=== PATIENT | female | born 1980 | race Caucasian/White ===

== ENCOUNTER 2017-07-10 07:13 | Emergency (ER) | payer MEDICARE, MEDICAID ==
[~2017-07-10] VITALS: Ht 147.3 cm; Wt 48.0 kg
[~2017-07-10 07:13] MED LIST: METH5TAB4 PO; ZOF4T PO
[2017-07-10 09:18] VITALS: BP 113/67
== END 2017-07-10 09:16 | disposition home or self-care (01) ==
LOC: ER 07:13
DX: J02.9 Acute pharyngitis, unspecified (principal); F12.10 Cannabis abuse, uncomplicated; Z59.0 Homelessness
CPT/HCPCS: 87081; 87880; 99284

== ENCOUNTER 2017-07-11 14:32 | Emergency (ER) | payer MEDICARE, MEDICAID ==
[~2017-07-11] VITALS: Ht 168934.2 cm; Wt 50.0 kg
[2017-07-11] MEDS ORDERED: acetaminophen 325mg tablet PO STA (14:33)
[2017-07-11] MEDS ORDERED: normal saline 1000ML IV soln IV ONE (14:35)
[2017-07-11 15:34] LABS: BASOPHILS % (AUTO) 0.4 % (0-1); EOSINOPHILS # (AUTO) 0.1 X10'3 (0-0.9); EOSINOPHILS % (AUTO) 1.1 % (0-6); HEMATOCRIT 38.8 % (35.0-45.0); HEMOGLOBIN 13.7 g/dl (12.0-16.0); LYMPHOCYTES # (AUTO) 1.3 X10'3 (1.1-4.8); LYMPHOCYTES % (AUTO) 25.2 % (21-51); MEAN CORPUSCULAR HEMOGLOBIN 31.7 PG (27.0-31.0); MEAN CORPUSCULAR HGB CONC 35.4 % (33.0-36.5); MEAN CORPUSCULAR VOLUME 89.6 FL (78-98); MEAN PLATELET VOLUME 7.7 FL (7.4-10.4); MONOCYTES # (AUTO) 0.5 X10'3 (0-0.9); NEUTROPHILS # (AUTO) 3.4 X10'3 (1.8-7.7); NEUTROPHILS % (AUTO) 64.3 % (42-75); PLATELET COUNT 273 X10'3 (140-440); RED BLOOD COUNT 4.32 X10'6 (4.20-5.60); RED CELL DISTRIBUTION WIDTH 12.2 % (11.5-14.5); WHITE BLOOD COUNT 5.3 X10'3 (4.5-11.0)
[2017-07-11 15:44] LABS: AMMONIA < 10 UMOL/L (11-32)
[2017-07-11 15:45] LABS: LACTIC SEPSIS 0.8 MMOL/L (0.4-2.0)
[2017-07-11 15:57] LABS: ALANINE AMINOTRANSFERASE 18 U/L (12-78); ALBUMIN 3.8 G/DL (3.4-5.0); ALBUMIN/GLOBULIN RATIO 1.1 (1.1-1.5); ALKALINE PHOSPHATASE 67 IU/L (46-116); ANION GAP 10 (8-16); ASPARTATE AMINO TRANSFERASE 14 U/L (10-37); BILIRUBIN,TOTAL 0.3 MG/DL (0.1-1.0); BLOOD UREA NITROGEN 8 MG/DL (7-18); CHLORIDE 105 MMOL/L (99-107); CREATINE KINASE 65 U/L (26-192); ETHANOL < 0.010 GM/DL (0.0-0.010); GLUCOSE 90 MG/DL (70-104); POTASSIUM 4.1 MMOL/L (3.5-5.1); SODIUM 141 MMOL/L (135-145); TOTAL CARBON DIOXIDE 26.2 MMOL/L (24-32); TOTAL PROTEIN 7.2 G/DL (6.4-8.2); eGFR 80 ML/MIN
[2017-07-11] MEDS ORDERED: haloperidol lactate 5mg/ml inj IM ONE (16:40)
[2017-07-11] MEDS ORDERED: proparacaine 0.5% ophthalmic drops 15ml EACHEYE ONE (16:55)
[2017-07-11] MEDS ORDERED: LORazepam 2 mg/ml vial IV ONE ×2 (17:10→17:30)
[2017-07-11 17:12] LABS: HCG SERUM QL NEGATIVE
[2017-07-11] MEDS: ciprofloxacin 0.3% 5ml ophthalmic solution EACHEYE SCH ×3 (17:52→23:43)
[2017-07-11 17:55] LABS: CLARITY,URINE CLEAR (Clear); COLOR,URINE YELLOW (Yellow); GLUCOSE, URINE NEGATIVE (Neg); KETONES,URINE TRACE mg/dl (Neg); LEUKOCYTE ESTERASE ,URINE NEGATIVE (Neg); NITRITES, URINE NEGATIVE (Neg); OCCULT BLOOD,URINE NEGATIVE (Neg); PH,URINE 5.5 (4.8-8.0); PROTEIN,URINE NEGATIVE (Neg); UROBILINOGEN,URINE 0.2 E.U/dL (0.2-1.0)
[2017-07-11 17:56] LABS: UA COLLECTION TYPE NON-SPECIFIED
[2017-07-11 18:53] LABS: URINE AMPHETAMINE SCREEN POSITIVE (Neg); URINE BARBITUATE SCREEN NEGATIVE (Neg); URINE BENZODIAZEPINES SCREEN NEGATIVE (Neg); URINE CANNABINOID SCREEN NEGATIVE (Neg); URINE COCAINE SCREEN NEGATIVE (Neg); URINE METHADONE SCREEN NEGATIVE (Neg); URINE OPIATE SCREEN NEGATIVE (Neg); URINE PHENCYCLIDINE SCREEN NEGATIVE (Neg)
[2017-07-11] MEDS ORDERED: ciprofloxacin 0.3% 5ml ophthalmic solution EACHEYE SCH (20:00)
[2017-07-12] MEDS: ciprofloxacin 0.3% 5ml ophthalmic solution EACHEYE SCH ×6 (04:00→23:57)
[2017-07-12] MEDS ORDERED: NO HOME MEDS (11:06)
[2017-07-12] MEDS ORDERED: ziprasidone IM 20mg inj **IM only IM PRN (23:05)
[2017-07-13] MEDS: ciprofloxacin 0.3% 5ml ophthalmic solution EACHEYE SCH ×2 (04:00→07:30)
[2017-07-13 13:38] VITALS: BP 98/68
== END 2017-07-13 13:42 ==
LOC: ER 14:32
DX: F23 Brief psychotic disorder (principal); F15.10 Other stimulant abuse, uncomplicated; H10.9 Unspecified conjunctivitis; F12.10 Cannabis abuse, uncomplicated; Z59.0 Homelessness; Z91.19 Patient's noncompliance with other medical treatment and regimen
CPT/HCPCS: 36415; 70450; 71045; 80053; 80305; 80320; 81003; 82140; 82550; 83605; 84703; 85025; 87040; 93005; 96361; 96372; 96374; 99285; J1630; J2060; J7030

== ENCOUNTER 2018-03-13 08:36 | Emergency (ER) | payer MEDICAID, MEDICARE ==
[~2018-03-13] VITALS: Ht 565.3 cm; Wt 54.5 kg
[~2018-03-13 08:36] MED LIST changes: -METH5TAB4 PO; +NO HOME MEDS; -ZOF4T PO
[2018-03-13 09:17] LABS: BASOPHILS % (AUTO) 0.3 % (0-1); EOSINOPHILS # (AUTO) 0.1 X10'3 (0-0.9); EOSINOPHILS % (AUTO) 1.4 % (0-6); HEMOGLOBIN 14.9 g/dl (12.0-16.0); LYMPHOCYTES # (AUTO) 0.9 X10'3 (1.1-4.8); MEAN CORPUSCULAR HGB CONC 33.7 % (33.0-36.5); MEAN CORPUSCULAR VOLUME 91.9 FL (78-98); MEAN PLATELET VOLUME 7.5 FL (7.4-10.4); MONOCYTES # (AUTO) 0.4 X10'3 (0-0.9); MONOCYTES % (AUTO) 4.8 % (2-12); NEUTROPHILS # (AUTO) 7.6 X10'3 (1.8-7.7); NEUTROPHILS % (AUTO) 83.5 % (42-75); PLATELET COUNT 258 X10'3 (140-440); RED BLOOD COUNT 4.79 X10'6 (4.20-5.60); RED CELL DISTRIBUTION WIDTH 13.6 % (11.5-14.5); WHITE BLOOD COUNT 9.1 X10'3 (4.5-11.0)
[2018-03-13 09:31] LABS: ALANINE AMINOTRANSFERASE 19 U/L (12-78); ALBUMIN 4.3 G/DL (3.4-5.0); ALBUMIN/GLOBULIN RATIO 1.2 (1.1-1.5); ALKALINE PHOSPHATASE 71 IU/L (46-116); ANION GAP 11 (8-16); ASPARTATE AMINO TRANSFERASE 16 U/L (10-37); BILIRUBIN,TOTAL 0.2 MG/DL (0.1-1.0); BLOOD UREA NITROGEN 13 MG/DL (7-18); BUN/CREATININE RATIO 16.3 (6.6-38.0); CALCIUM 9.1 MG/DL (8.5-10.1); CHLORIDE 105 MMOL/L (99-107); GLUCOSE 102 MG/DL (70-104); POTASSIUM 3.9 MMOL/L (3.5-5.1); SODIUM 142 MMOL/L (135-145); TOTAL CARBON DIOXIDE 26.5 MMOL/L (24-32); TOTAL PROTEIN 7.8 G/DL (6.4-8.2); eGFR 80 ML/MIN
[2018-03-13 09:40] LABS: ETHANOL < 0.010 GM/DL (0.0-0.010)
[2018-03-13 09:42] LABS: ACETAMINOPHEN < 2.0 UG/ML (10-30)
[2018-03-13 11:46] LABS: URINE HCG NEGATIVE (NEG)
[2018-03-13 11:53] LABS: URINE AMPHETAMINE SCREEN POSITIVE (Neg); URINE BARBITUATE SCREEN NEGATIVE (Neg); URINE BENZODIAZEPINES SCREEN NEGATIVE (Neg); URINE CANNABINOID SCREEN NEGATIVE (Neg); URINE COCAINE SCREEN NEGATIVE (Neg); URINE METHADONE SCREEN NEGATIVE (Neg); URINE OPIATE SCREEN NEGATIVE (Neg); URINE PHENCYCLIDINE SCREEN NEGATIVE (Neg)
[2018-03-13] MEDS ORDERED: OLAN5TAB5 PO (16:10)
[2018-03-13] MEDS ORDERED: OLANZapine 5mg rapidly disint. tablet PO SCH (21:00)
[2018-03-14 05:46] VITALS: BP 95/53
== END 2018-03-14 14:52 | disposition home or self-care (01) ==
LOC: ER 08:37
DX: F15.10 Other stimulant abuse, uncomplicated (principal); F12.90 Cannabis use, unspecified, uncomplicated; Z56.0 Unemployment, unspecified; Z59.0 Homelessness
CPT/HCPCS: 36415; 70450; 80053; 80305; 80320; 80329; 81025; 84443; 85025; 99285; A4353

== ENCOUNTER 2018-07-13 23:39 | Emergency (ER) | payer MEDICARE, MEDICAID ==
[~2018-07-13 23:39] MED LIST changes: -NO HOME MEDS; +OLAN5TAB5 PO
== END 2018-07-13 23:47 | disposition left against medical advice (07) ==
LOC: ER 23:40
DX: R07.81 Pleurodynia (principal); Z53.21 Procedure and treatment not carried out due to patient leaving prior to being seen by health care provider